=== PATIENT | male | born 1980 | race Two or more races ===

== ENCOUNTER 2021-06-01 20:32 | Emergency (ER) | payer OTHER ==
[~2021-06-01] VITALS: Ht 170.2 cm; Wt 81.6 kg
== END 2021-06-01 20:58 | disposition home or self-care (01) ==
LOC: ER 20:32
DX: S21.112A Laceration without foreign body of left front wall of thorax without penetration into thoracic cavity, initial encounter (principal); W18.09XA Striking against other object with subsequent fall, initial encounter; Y93.89 Activity, other specified; Y92.018 Other place in single-family (private) house as the place of occurrence of the external cause; Y99.8 Other external cause status

== ENCOUNTER 2022-09-29 23:17 | Emergency (ER) | payer OTHER ==
[~2022-09-29] VITALS: Ht 170.2 cm; Wt 81.6 kg
[2022-09-30] MEDS ORDERED: TUSNEL LIQUID178 ML PO (02:46)
[2022-09-30] MEDS ORDERED: ZITHROMAX500 MG PO (02:46)
[2022-09-30] MEDS ORDERED: ZYRTEC10 M3 PO (02:46)
== END 2022-09-30 | disposition home or self-care (01) ==
LOC: ER 23:17
DX: J06.9 Acute upper respiratory infection, unspecified (principal)

== ENCOUNTER 2022-11-27 20:17 | Emergency (ER) | payer OTHER ==
[~2022-11-27] VITALS: Ht 170.2 cm; Wt 81.6 kg
[~2022-11-27 20:17] MED LIST: TUSNEL LIQUID178 ML PO; ZITHROMAX500 MG PO; ZYRTEC10 M3 PO
== END 2022-11-27 21:55 | disposition home or self-care (01) ==
LOC: ER 20:17
DX: M62.838 Other muscle spasm (principal); G44.89 Other headache syndrome

== ENCOUNTER 2024-09-12 16:22 | Emergency (ER) | payer OTHER ==
[~2024-09-12] VITALS: Ht 170.2 cm; Wt 78.0 kg
[2024-09-12] MEDS ORDERED: ZOLOFT25 MG (17:16)
[2024-09-12] MEDS ORDERED: ADERAL (17:16)
[2024-09-12] MEDS ORDERED: NP THYROID15 MG (17:17)
[2024-09-12] MEDS ORDERED: ACETAMINOPHEN 500 MG GEL..CAP PO STA (19:03)
[2024-09-12] MEDS ORDERED: ACETAMINOPHEN 500 MG GEL..CAP PO ONE (19:13)
[2024-09-12 20:13] LABS: HEMATOCRIT 50.3 % (39.0-48.0); HEMOGLOBIN 17.7 g/dL (13-16.00); MEAN CELL VOLUME 98.1 fL (80.0-100.00); MEAN CORPUSCULAR HEMOGLOBIN 34.6 pg (27.00-32.0); MEAN CORPUSCULAR HGB CONC 35.2 g/dl (32.0-36.0); PLATELET COUNT 212 K/uL (150-450); RED BLOOD COUNT 5.13 M/uL (4.00-6.00); RED CELL DISTRIBUTION WIDTH 12.5 % (11.5-14.5)
[2024-09-12] MEDS ORDERED: GILTUSS COUGH-118 M1 PO (21:24)
[2024-09-12 21:31] LABS: INFLUENZA A AG NEGATIVE (NEGATIVE)
[2024-09-12 21:32] LABS: COVID-19 AG NEGATIVE (NEGATIVE)
== END 2024-09-12 21:56 | disposition home or self-care (01) ==
LOC: ER 16:23
PROVIDERS: Preventive Medicine Public Health & General Preventive Medicine
DX: B34.9 Viral infection, unspecified (principal); Z20.822 Contact with and (suspected) exposure to COVID-19